=== PATIENT | female | born 1965 | race Hispanic/Latino ===

== ENCOUNTER 2017-07-29 22:14 | Inpatient (IN) | payer MEDICAID ==
[~2017-07-29] VITALS: Ht 157.5 cm; Wt 87.1 kg
[2017-07-29 22:49] LABS: BASOPHILS % (AUTO) 0.7 % (0.0-5.0); EOSINOPHILS % (AUTO) 1.6 % (0.0-8.0); HEMATOCRIT 33.2 % (36-48); LYMPHOCYTES % (AUTO) 34.4 % (21.0-51.0); MEAN CORPUSCULAR HEMOGLOBIN 32.2 pg (27.0-33.0); MEAN CORPUSCULAR HGB CONC 34.9 g/dL (32.0-36.0); MONOCYTES % (AUTO) 8.1 % (3.0-13.0); NEUTROPHILS % (AUTO) 55.2 % (40.0-77.0); PLATELET COUNT (AUTO) 261 K/uL (130-400); RED BLOOD CELL COUNT(AUTO) 3.61 MIL/uL (4.00-5.50); RED CELL DISTRIBUTION WIDTH 13.1 % (11.0-15.5)
[2017-07-29 23:00] LABS: CREATININE 0.9 mg/dL (0.5-1.5); POTASSIUM 4.2 mmol/L (3.5-5.1)
[2017-07-29 23:04] LABS: ALBUMIN 3.4 g/dL (3.5-5.0); BILIRUBIN,TOTAL 0.2 mg/dL (0.2-1.0); TOTAL PROTEIN, SERUM 6.8 g/dL (6.0-8.3)
[2017-07-29] MEDS ORDERED: ONDANSETRON HCL 4 MG/2 ML VIAL ONE (23:16)
[2017-07-29] MEDS ORDERED: SODIUM CHLORIDE 0.9% 1000ML 1,000 ML IV ONE (23:16)
[2017-07-29] MEDS ORDERED: MORPHINE SULFATE 8 MG/ML VIAL ONE (23:17)
[2017-07-29] MEDS ORDERED: IOPAMIDOL-370 75 ML VIAL IV ONE (23:40)
[2017-07-30 01:58] LABS: PARTIAL THROMBOPLASTIN TIME 45.8 SEC (26.3-35.5)
[2017-07-30 02:10] LABS: INR 4.35 (0.85-1.15); PROTHROMBIN TIME 44.4 SEC (9.6-11.6)
[2017-07-30] MEDS ORDERED: MORPHINE SULFATE 8 MG/ML VIAL ONE ×2 (02:26→02:36)
[2017-07-30] MEDS ORDERED: HYDROMORPHONE 4MG/ML 1ML VIAL ONE (05:57)
[2017-07-30] MEDS ORDERED: SODIUM CHLORIDE 0.9% 1000ML 1,000 ML IV SCH (09:00)
[2017-07-30] MEDS ORDERED: MORPHINE SULFATE 2 MG/ML 1ML SYG IVP PRN (09:00)
[2017-07-30] MEDS ORDERED: MORPHINE SULFATE 2 MG/ML 1ML SYG ONE (09:24)
[2017-07-30 12:08] VITALS: BP 151/93
[2017-07-30] MEDS ORDERED: WARF7.5T23 PO (12:25)
[2017-07-30] MEDS ORDERED: VALS320T2 PO (12:25)
[2017-07-30] MEDS ORDERED: PROG100C6 PO (12:25)
[2017-07-30] MEDS ORDERED: ESOM40CA PO (12:25)
[2017-07-30] MEDS ORDERED: VENL150T3 PO (12:25)
[2017-07-30] MEDS ORDERED: HYDR-4381 PO (12:26)
[2017-07-30] MEDS: SODIUM CHLORIDE 0.9% 1000ML 1,000 ML IV SCH ×2 (13:02→23:42)
[2017-07-30] MEDS: MORPHINE SULFATE 2 MG/ML 1ML SYG IVP PRN ×3 (13:56→22:02)
[2017-07-30 15:20] VITALS: BP 120/84
[2017-07-30] MEDS ORDERED: MORPHINE SULFATE 2 MG/ML 1ML SYG IV PRN (18:15)
[2017-07-30] MEDS ORDERED: HYDRALAZINE HCL 20 MG/ML VIAL IV PRN (18:15)
[2017-07-30] MEDS ORDERED: HYDROCODONE/ACETAMINOPHEN 5/325 MG TAB PO PRN (18:15)
[2017-07-30 19:37] VITALS: BP 123/64
[2017-07-30 23:01] VITALS: BP 127/68
[2017-07-31 03:26] VITALS: BP 126/64
[2017-07-31] MEDS: MORPHINE SULFATE 2 MG/ML 1ML SYG IVP PRN ×2 (07:07→11:27)
[2017-07-31 07:34] VITALS: BP 137/82
[2017-07-31] MEDS ORDERED: PANTOPRAZOLE SODIUM 40 MG TABLET.DR PO SCH ×2 (09:00)
[2017-07-31] MEDS ORDERED: LOSARTAN 100 MG TABLET PO SCH (09:00)
[2017-07-31] MEDS: SODIUM CHLORIDE 0.9% 1000ML 1,000 ML IV SCH (10:17)
[2017-07-31 11:37] VITALS: BP 142/76
[2017-07-31 12:25] LABS: INR 2.19 (0.85-1.15); PROTHROMBIN TIME 22.6 SEC (9.6-11.6)
[2017-07-31 15:26] VITALS: BP 151/93
[2017-07-31] MEDS ORDERED: WARFARIN SODIUM 7.5 MG TAB PO SCH (16:00)
== END 2017-07-31 17:50 | disposition home or self-care (01) | DRG 251 ==
LOC: EDH 22:14 → EDHIP 22:15 → WSH 07-30 11:55
PROVIDERS: ADMIT Family Medicine; ATTEND Family Medicine
DX: R10.9 Unspecified abdominal pain (principal); E66.9 Obesity, unspecified; F32.9 Major depressive disorder, single episode, unspecified; Z68.35 Body mass index [BMI] 35.0-35.9, adult; F41.9 Anxiety disorder, unspecified; G89.4 Chronic pain syndrome; Z79.01 Long term (current) use of anticoagulants; Z95.2 Presence of prosthetic heart valve; Z98.84 Bariatric surgery status; Z86.73 Personal history of transient ischemic attack (TIA), and cerebral infarction without residual deficits; I10 Essential (primary) hypertension; M10.9 Gout, unspecified; M79.7 Fibromyalgia; Z90.49 Acquired absence of other specified parts of digestive tract; Z28.21 Immunization not carried out because of patient refusal
CPT/HCPCS: 36415; 74176; 80053; 82550; 83690; 84484; 85025; 85610; 85730; 93005; 99291; J1170; J2270; J2405; J7030; Q9967

== ENCOUNTER 2017-10-20 08:02 | Emergency (ER) | payer MEDICAID ==
[~2017-10-20 08:02] MED LIST: ESOM40CA PO; HYDR-4381 PO; PROG100C6 PO; VALS320T2 PO; VENL150T3 PO; WARF7.5T23 PO
[2017-10-20] MEDS ORDERED: TETANUS/DIPHTHERIA TOXOID [ADULT] 0.5 ML VIAL IM ONE (08:34)
[2017-10-20 09:02] LABS: BASOPHILS % (AUTO) 0.4 % (0.0-5.0); EOSINOPHILS % (AUTO) 2.3 % (0.0-8.0); HEMATOCRIT 36.3 % (36-48); LYMPHOCYTES % (AUTO) 25.3 % (21.0-51.0); MEAN CORPUSCULAR HEMOGLOBIN 31.9 pg (27.0-33.0); MEAN CORPUSCULAR HGB CONC 34.9 g/dL (32.0-36.0); MEAN CORPUSCULAR VOLUME 91.4 fL (79-99); MONOCYTES % (AUTO) 4.1 % (3.0-13.0); NEUTROPHILS % (AUTO) 67.9 % (40.0-77.0); PLATELET COUNT (AUTO) 254 K/uL (130-400); RED BLOOD CELL COUNT(AUTO) 3.97 MIL/uL (4.00-5.50); RED CELL DISTRIBUTION WIDTH 13.3 % (11.0-15.5); WHITE BLOOD COUNT (AUTO) 6.4 K/uL (4.8-10.8)
[2017-10-20 09:03] LABS: APPEARANCE,URINE CLEAR (CLEAR); BILIRUBIN,URINE NEGATIVE (NEGATIVE); COLOR,URINE YELLOW (YELLOW); GLUCOSE, URINE (UA) NEGATIVE (NEGATIVE); KETONES,URINE NEGATIVE (NEGATIVE); LEUKOCYTE ESTERASE ,URINE SMALL (NEGATIVE); NITRATE,URINE NEGATIVE (NEGATIVE); OCCULT BLOOD,URINE TRACE-INTACT (NEGATIVE); PH,URINE 5.5 (5.0-8.0); PROTEIN,URINE NEGATIVE (NEGATIVE); UROBILINOGEN,URINE 0.2 mg/dL (0.2-1.0)
[2017-10-20 09:08] LABS: AMPHET/METH SCREEN,URINE NEGATIVE (NEGATIVE); BACTERIA,URINE Rare /HPF (None Seen); BARBITURATE SCREEN, URINE NEGATIVE (NEGATIVE); BENZODIAZEPINES SCREEN,URINE NEGATIVE (NEGATIVE); CANNABINOID SCREEN,URINE NEGATIVE (NEGATIVE); COCAINE SCREEN,URINE NEGATIVE (NEGATIVE); OPIATE SCREEN,URINE POSITIVE (NEGATIVE); PHENCYCLIDINE SCREEN,URINE NEGATIVE (NEGATIVE); RBC,URINE 0-1 /HPF (0-1); SQUAMOUS EPITHELIAL CELL,UR Rare /HPF (0-2)
[2017-10-20 09:13] LABS: CREATININE 0.9 mg/dL (0.5-1.5); POTASSIUM 4.1 mmol/L (3.5-5.1)
[2017-10-20 09:23] LABS: INR 2.64 (0.85-1.15); PARTIAL THROMBOPLASTIN TIME 39.2 SEC (26.3-35.5); PROTHROMBIN TIME 27.2 SEC (9.6-11.6)
[2017-10-20 09:25] LABS: BILIRUBIN,TOTAL 0.3 mg/dL (0.2-1.0)
[2017-10-20 09:26] LABS: ALBUMIN 3.7 g/dL (3.5-5.0); CREATINE KINASE MB 1.5 ng/mL (0.5-3.6); TOTAL PROTEIN, SERUM 7.6 g/dL (6.0-8.3)
== END 2017-10-20 10:14 | disposition home or self-care (01) ==
LOC: EDH 08:02
DX: S29.011A Strain of muscle and tendon of front wall of thorax, initial encounter (principal); S63.592A Other specified sprain of left wrist, initial encounter; I25.10 Atherosclerotic heart disease of native coronary artery without angina pectoris; I10 Essential (primary) hypertension; Z87.891 Personal history of nicotine dependence; Z79.01 Long term (current) use of anticoagulants; Z95.2 Presence of prosthetic heart valve; W01.0XXA Fall on same level from slipping, tripping and stumbling without subsequent striking against object, initial encounter; Y93.01 Activity, walking, marching and hiking; Y92.89 Other specified places as the place of occurrence of the external cause; Y99.8 Other external cause status
CPT/HCPCS: 36415; 71101; 73130; 80053; 80305; 81001; 82550; 82553; 84484; 85025; 85610; 85730; 90471; 90714; 93005

== ENCOUNTER 2022-05-31 04:04 | Inpatient (IN) | payer MEDICAID ==
[~2022-05-31] VITALS: Ht 160 cm; Wt 75.1 kg
[2022-05-31] VITALS (7 sets, daily range): BP systolic 93–124; BP diastolic 35–46
[~2022-05-31 04:04] MED LIST changes: +PROG100C11 PO; -PROG100C6 PO
[2022-05-31 04:31] LABS: BASOPHILS % (AUTO) 0.6 % (0.0-5.0); EOSINOPHILS % (AUTO) 1.2 % (0.0-8.0); HEMATOCRIT 30.5 % (36-48); LYMPHOCYTES % (AUTO) 14.2 % (21.0-51.0); MEAN CORPUSCULAR HEMOGLOBIN 30.5 pg (27.0-33.0); MEAN CORPUSCULAR HGB CONC 33.1 g/dL (32.0-36.0); MEAN CORPUSCULAR VOLUME 92.1 fL (79-99); MONOCYTES % (AUTO) 4.8 % (3.0-13.0); NEUTROPHILS % (AUTO) 78.8 % (40.0-77.0); PLATELET COUNT (AUTO) 292 K/uL (130-400); RED BLOOD CELL COUNT(AUTO) 3.31 MIL/uL (4.00-5.50); RED CELL DISTRIBUTION WIDTH 13.6 % (11.0-15.5); WHITE BLOOD COUNT (AUTO) 7.7 K/uL (4.8-10.8)
[2022-05-31 04:33] LABS: APPEARANCE,URINE CLEAR (CLEAR); BILIRUBIN,URINE NEGATIVE (NEGATIVE); COLOR,URINE YELLOW (YELLOW); GLUCOSE, URINE (UA) NEGATIVE (NEGATIVE); KETONES,URINE NEGATIVE (NEGATIVE); LEUKOCYTE ESTERASE ,URINE NEGATIVE Leu/uL (NEGATIVE); NITRATE,URINE NEGATIVE (NEGATIVE); OCCULT BLOOD,URINE NEGATIVE (NEGATIVE); PH,URINE 5.5 (5.0-8.0); PROTEIN,URINE 10 mg/dL (NEGATIVE)
[2022-05-31 04:41] LABS: CREATININE 1.1 mg/dL (0.5-1.5); POTASSIUM 3.9 mmol/L (3.5-5.1)
[2022-05-31 04:49] LABS: RBC,URINE 0-1 /HPF (0-1)
[2022-05-31 04:52] LABS: ALBUMIN 3.2 g/dL (3.5-5.0); TOTAL PROTEIN, SERUM 7.5 g/dL (6.0-8.3)
[2022-05-31 04:54] LABS: INR 0.93 (0.85-1.15); PROTHROMBIN TIME 9.9 SEC (9.6-11.6)
[2022-05-31 04:56] LABS: PARTIAL THROMBOPLASTIN TIME 27.7 SEC (26.3-35.5)
[2022-05-31] MEDS ORDERED: ASPIRIN 81MG CHEW TAB PO ONE (05:30)
[2022-05-31] MEDS ORDERED: MORPHINE 2 MG SYG IVP ONE (05:30)
[2022-05-31] MEDS ORDERED: HEPARIN 25,000 UNITS/250ML D5W 250 ML IV SCH (05:30)
[2022-05-31] MEDS ORDERED: HEPARIN 5,000 UNIT VIAL ONE (05:51)
[2022-05-31] MEDS ORDERED: CLONIDINE HCL 0.1 MG TABLET PO PRN (06:00)
[2022-05-31] MEDS ORDERED: LABETALOL 20MG SYG IV PRN (06:00)
[2022-05-31] MEDS ORDERED: HYDRALAZINE 20MG/ML VIAL IV PRN (06:00)
[2022-05-31] MEDS ORDERED: ACETAMINOPHEN 325 MG TAB PO PRN (06:00)
[2022-05-31 06:03] LABS: AMPHET/METH SCREEN,URINE NEGATIVE (NEGATIVE); BARBITURATE SCREEN, URINE NEGATIVE (NEGATIVE); BENZODIAZEPINES SCREEN,URINE NEGATIVE (NEGATIVE); CANNABINOID SCREEN,URINE NEGATIVE (NEGATIVE); COCAINE SCREEN,URINE NEGATIVE (NEGATIVE); OPIATE SCREEN,URINE POSITIVE (NEGATIVE); PHENCYCLIDINE SCREEN,URINE NEGATIVE (NEGATIVE)
[2022-05-31 06:04] LABS: HEMOGLOBIN A1C 4.4 % (4.0-6.0)
[2022-05-31 06:10] LABS: THYROID STIMULATING HORMONE 1.48 uIU/mL (0.36-3.74)
[2022-05-31] MEDS ORDERED: FUROSEMIDE 20MG VIAL IV ONE (06:30)
[2022-05-31] MEDS ORDERED: LIDOCAINE HCL-MPF 1% 2ML VIAL IV PRN (06:30)
[2022-05-31] MEDS ORDERED: POTASSIUM CHLORIDE 10MEQ/100ML 100 ML IV PRN (06:30)
[2022-05-31] MEDS: METOPROLOL TARTRATE 25 MG TAB PO SCH ×3 (06:54→20:10)
[2022-05-31] MEDS: FUROSEMIDE 20MG VIAL IV SCH ×2 (08:12→20:09)
[2022-05-31] MEDS: ASPIRIN 81MG CHEW TAB PO SCH (08:13)
[2022-05-31] MEDS: MORPHINE 2 MG SYG IVP PRN ×4 (08:24→21:25)
[2022-05-31] MEDS ORDERED: LOSA100T58 PO (18:10)
[2022-05-31] MEDS ORDERED: 0.9% NACL 500ML IV.SOLN 500 ML IV ONE (19:43)
[2022-05-31] MEDS ORDERED: MIDODRINE HCL 5 MG TABLET ONE (19:43)
[2022-05-31] MEDS: FAMOTIDINE 20MG VIAL IV SCH (20:09)
[2022-05-31] MEDS ORDERED: MIDODRINE HCL 5 MG TABLET PO SCH (21:00)
[2022-06-01] MEDS: MORPHINE 2 MG SYG IVP PRN ×5 (02:07→20:46)
[2022-06-01 03:36] VITALS: BP 110/39
[2022-06-01 04:38] LABS: BASOPHILS % (AUTO) 0.6 % (0.0-5.0); EOSINOPHILS % (AUTO) 1.2 % (0.0-8.0); HEMATOCRIT 30.1 % (36-48); LYMPHOCYTES % (AUTO) 17.9 % (21.0-51.0); MEAN CORPUSCULAR HEMOGLOBIN 30.5 pg (27.0-33.0); MEAN CORPUSCULAR HGB CONC 32.6 g/dL (32.0-36.0); MEAN CORPUSCULAR VOLUME 93.8 fL (79-99); MONOCYTES % (AUTO) 5.5 % (3.0-13.0); NEUTROPHILS % (AUTO) 74.4 % (40.0-77.0); PLATELET COUNT (AUTO) 255 K/uL (130-400); RED BLOOD CELL COUNT(AUTO) 3.21 MIL/uL (4.00-5.50); RED CELL DISTRIBUTION WIDTH 13.9 % (11.0-15.5); WHITE BLOOD COUNT (AUTO) 8.2 K/uL (4.8-10.8)
[2022-06-01 04:54] LABS: CREATININE 1.2 mg/dL (0.5-1.5); MAGNESIUM 1.8 mg/dL (1.80-2.40); PHOSPHORUS 3.9 mg/dL (2.5-4.9); POTASSIUM 4.3 mmol/L (3.5-5.1)
[2022-06-01] MEDS: MAGNESIUM 2GM PREMIX 50ML 50 ML IV PRN (05:14)
[2022-06-01 05:29] LABS: B-TYPE NATRIURETIC PEPTIDE 2510 pg/mL (0-100)
[2022-06-01] MEDS: FUROSEMIDE 20MG VIAL IV SCH (06:32)
[2022-06-01 08:00] VITALS: BP 112/42
[2022-06-01] MEDS: MIDODRINE HCL 5 MG TABLET PO SCH ×3 (09:00→20:46)
[2022-06-01] MEDS: FUROSEMIDE 40MG VIAL IV SCH ×2 (09:56→20:45)
[2022-06-01] MEDS: ASPIRIN 81MG CHEW TAB PO SCH (09:56)
[2022-06-01] MEDS: FAMOTIDINE 20MG VIAL IV SCH ×2 (09:56→20:45)
[2022-06-01] MEDS: VENLAFAXINE HCL XR 37.5 MG CAP PO SCH (09:56)
[2022-06-01] MEDS: ENOXAPARIN SODIUM 30 MG/0.3 ML SQ SCH (09:57)
[2022-06-01 12:00] VITALS: BP 126/44
[2022-06-01 16:00] VITALS: BP 109/47
[2022-06-01 19:09] VITALS: BP_SYST 108; BP_SYST 140; BP_DIAS 40; BP_DIAS 85
[2022-06-01 23:46] VITALS: BP 133/53
[2022-06-02] MEDS: MORPHINE 2 MG SYG IVP PRN ×5 (01:17→20:26)
[2022-06-02 04:00] VITALS: BP 116/48
[2022-06-02 04:00] LABS: BASOPHILS % (AUTO) 0.6 % (0.0-5.0); EOSINOPHILS % (AUTO) 1.3 % (0.0-8.0); LYMPHOCYTES % (AUTO) 19.8 % (21.0-51.0); MEAN CORPUSCULAR HEMOGLOBIN 30.6 pg (27.0-33.0); MEAN CORPUSCULAR HGB CONC 32.7 g/dL (32.0-36.0); MEAN CORPUSCULAR VOLUME 93.8 fL (79-99); MONOCYTES % (AUTO) 6.9 % (3.0-13.0); NEUTROPHILS % (AUTO) 71.1 % (40.0-77.0); PLATELET COUNT (AUTO) 300 K/uL (130-400); WHITE BLOOD COUNT (AUTO) 9.1 K/uL (4.8-10.8)
[2022-06-02 04:10] LABS: CREATININE 1.1 mg/dL (0.5-1.5); POTASSIUM 4.7 mmol/L (3.5-5.1)
[2022-06-02] MEDS: FUROSEMIDE 40MG VIAL IV SCH ×2 (06:43→17:36)
[2022-06-02 08:00] VITALS: BP 109/42
[2022-06-02] MEDS: MIDODRINE HCL 5 MG TABLET PO SCH ×3 (09:08→20:13)
[2022-06-02] MEDS: ASPIRIN 81MG CHEW TAB PO SCH (09:09)
[2022-06-02] MEDS: ENOXAPARIN SODIUM 30 MG/0.3 ML SQ SCH ×2 (09:09→09:10)
[2022-06-02] MEDS: FAMOTIDINE 20MG VIAL IV SCH ×2 (09:09→20:20)
[2022-06-02] MEDS: VENLAFAXINE HCL XR 37.5 MG CAP PO SCH (09:09)
[2022-06-02 12:18] VITALS: BP 114/41
[2022-06-02 16:46] VITALS: BP 132/61
[2022-06-02] MEDS: ONDANSETRON 4MG INJ IVP PRN (17:36)
[2022-06-02 18:27] VITALS: BP 122/50
[2022-06-02] MEDS ORDERED: IOHEXOL 350 MG/ML 100ML INFUS..BTL IV ONE (18:58)
[2022-06-03] VITALS (13 sets, daily range): BP systolic 101–125; BP diastolic 41–81
[2022-06-03] MEDS: MORPHINE 2 MG SYG IVP PRN ×5 (02:12→21:48)
[2022-06-03 03:42] LABS: BASOPHILS % (AUTO) 0.7 % (0.0-5.0); EOSINOPHILS % (AUTO) 2.8 % (0.0-8.0); LYMPHOCYTES % (AUTO) 19.7 % (21.0-51.0); MEAN CORPUSCULAR HEMOGLOBIN 30.6 pg (27.0-33.0); MEAN CORPUSCULAR HGB CONC 32.5 g/dL (32.0-36.0); MEAN CORPUSCULAR VOLUME 94.3 fL (79-99); MONOCYTES % (AUTO) 7.6 % (3.0-13.0); NEUTROPHILS % (AUTO) 68.5 % (40.0-77.0); PLATELET COUNT (AUTO) 256 K/uL (130-400); RED BLOOD CELL COUNT(AUTO) 2.97 MIL/uL (4.00-5.50); RED CELL DISTRIBUTION WIDTH 14.2 % (11.0-15.5); WHITE BLOOD COUNT (AUTO) 7.2 K/uL (4.8-10.8)
[2022-06-03 03:58] LABS: INR 0.94 (0.85-1.15); PROTHROMBIN TIME 10.3 SEC (9.6-11.6)
[2022-06-03 03:59] LABS: PARTIAL THROMBOPLASTIN TIME 26.3 SEC (26.3-35.5)
[2022-06-03 04:00] LABS: ALBUMIN 2.8 g/dL (3.5-5.0); CREATININE 1.3 mg/dL (0.5-1.5); MAGNESIUM 1.7 mg/dL (1.80-2.40); POTASSIUM 4.6 mmol/L (3.5-5.1); TOTAL PROTEIN, SERUM 6.8 g/dL (6.0-8.3)
[2022-06-03] MEDS: FUROSEMIDE 40MG VIAL IV SCH ×2 (05:40→17:44)
[2022-06-03] MEDS: MAGNESIUM 2GM PREMIX 50ML 50 ML IV PRN (05:41)
[2022-06-03] MEDS: ASPIRIN 81MG CHEW TAB PO SCH (08:27)
[2022-06-03] MEDS: FAMOTIDINE 20MG VIAL IV SCH ×2 (08:28→20:21)
[2022-06-03] MEDS: MIDODRINE HCL 5 MG TABLET PO SCH ×3 (08:28→20:01)
[2022-06-03] MEDS: VENLAFAXINE HCL XR 37.5 MG CAP PO SCH (08:28)
[2022-06-03] MEDS ORDERED: HEPARIN 10,000 UNIT/10ML (1,000 UNIT/ML) VIAL ONE (13:32)
[2022-06-03] MEDS ORDERED: NITROGLYCERIN 50MG VIAL ONE (13:32)
[2022-06-03] MEDS ORDERED: LIDOCAINE HCL 400MG/20ML VIAL ONE (13:33)
[2022-06-03] MEDS ORDERED: IOHEXOL 350 MG/ML 100ML INFUS..BTL IV ONE ×3 (13:33→14:06)
[2022-06-03] MEDS ORDERED: MIDAZOLAM HCL 1 MG/ML 2ML VIAL ONE (13:33)
[2022-06-03] MEDS ORDERED: IOHEXOL-350 50ML VIAL IV ONE (13:33)
[2022-06-03] MEDS ORDERED: FENTANYL CITRATE PF 50 MCG/1 ML 2ML VIAL ONE (13:46)
[2022-06-03] MEDS ORDERED: DOPAMINE HCL 400 MG/D5%-WATER 0 ML IV ONE (13:50)
[2022-06-03] MEDS: LOSARTAN 25 MG TABLET PO SCH (20:21)
[2022-06-04] VITALS (7 sets, daily range): BP systolic 98–119; BP diastolic 40–54
[2022-06-04] MEDS: MORPHINE 2 MG SYG IVP PRN ×6 (02:07→23:27)
[2022-06-04 03:46] LABS: HEMATOCRIT 27.7 % (36-48); MEAN CORPUSCULAR HEMOGLOBIN 30.8 pg (27.0-33.0); MEAN CORPUSCULAR HGB CONC 32.5 g/dL (32.0-36.0); MEAN CORPUSCULAR VOLUME 94.9 fL (79-99); RED BLOOD CELL COUNT(AUTO) 2.92 MIL/uL (4.00-5.50); RED CELL DISTRIBUTION WIDTH 14.1 % (11.0-15.5); WHITE BLOOD COUNT (AUTO) 8.3 K/uL (4.8-10.8)
[2022-06-04 04:00] LABS: CREATININE 1.4 mg/dL (0.5-1.5); POTASSIUM 4.7 mmol/L (3.5-5.1)
[2022-06-04] MEDS: FUROSEMIDE 40MG VIAL IV SCH ×2 (08:35→20:48)
[2022-06-04] MEDS: MIDODRINE HCL 5 MG TABLET PO SCH ×3 (08:35→20:48)
[2022-06-04] MEDS: FAMOTIDINE 20MG VIAL IV SCH ×2 (08:35→20:48)
[2022-06-04] MEDS: ASPIRIN 81MG CHEW TAB PO SCH (08:36)
[2022-06-04] MEDS: LOSARTAN 25 MG TABLET PO SCH ×2 (08:36→20:47)
[2022-06-04] MEDS: VENLAFAXINE HCL XR 37.5 MG CAP PO SCH (08:36)
[2022-06-04] MEDS: ENOXAPARIN SODIUM 30 MG/0.3 ML SQ SCH (08:36)
[2022-06-04] MEDS: ONDANSETRON 4MG INJ IVP PRN (17:54)
[2022-06-05 00:24] VITALS: BP 110/45
[2022-06-05 04:32] VITALS: BP 100/43
[2022-06-05] MEDS: MORPHINE 2 MG SYG IVP PRN ×3 (04:36→17:35)
[2022-06-05 04:46] LABS: HEMATOCRIT 28.6 % (36-48); MEAN CORPUSCULAR HEMOGLOBIN 30.4 pg (27.0-33.0); MEAN CORPUSCULAR HGB CONC 31.8 g/dL (32.0-36.0); MEAN CORPUSCULAR VOLUME 95.7 fL (79-99); RED BLOOD CELL COUNT(AUTO) 2.99 MIL/uL (4.00-5.50); RED CELL DISTRIBUTION WIDTH 14.3 % (11.0-15.5); WHITE BLOOD COUNT (AUTO) 8.5 K/uL (4.8-10.8)
[2022-06-05 04:55] LABS: INR 0.93 (0.85-1.15); PROTHROMBIN TIME 10.2 SEC (9.6-11.6)
[2022-06-05 04:56] LABS: PARTIAL THROMBOPLASTIN TIME 25.6 SEC (26.3-35.5)
[2022-06-05 05:19] LABS: ALBUMIN 2.8 g/dL (3.5-5.0); CREATININE 1.4 mg/dL (0.5-1.5); MAGNESIUM 2.1 mg/dL (1.80-2.40); PHOSPHORUS 5.3 mg/dL (2.5-4.9); POTASSIUM 4.5 mmol/L (3.5-5.1); TOTAL PROTEIN, SERUM 6.7 g/dL (6.0-8.3)
[2022-06-05 08:59] VITALS: BP 105/45
[2022-06-05] MEDS: ASPIRIN 81MG CHEW TAB PO SCH (09:35)
[2022-06-05] MEDS: VENLAFAXINE HCL XR 37.5 MG CAP PO SCH (09:38)
[2022-06-05] MEDS: LOSARTAN 25 MG TABLET PO SCH ×2 (09:38→13:30)
[2022-06-05] MEDS: MIDODRINE HCL 5 MG TABLET PO SCH ×3 (09:38→20:23)
[2022-06-05] MEDS: FAMOTIDINE 20MG VIAL IV SCH ×2 (09:40→20:19)
[2022-06-05] MEDS: ENOXAPARIN SODIUM 30 MG/0.3 ML SQ SCH (09:42)
[2022-06-05] MEDS: FUROSEMIDE 40MG VIAL IV SCH ×2 (10:06→20:19)
[2022-06-05 12:41] VITALS: BP 111/49
[2022-06-05] MEDS ORDERED: HYDROCODONE/ACETAMINOPHEN 10/325 MG TAB ONE (13:15)
[2022-06-05] MEDS ORDERED: HYDROCODONE/ACETAMINOPHEN 10/325 MG TAB PO PRN (13:30)
[2022-06-05 16:47] VITALS: BP 86/37
[2022-06-05] MEDS ORDERED: MIDODRINE HCL 5 MG TABLET ONE (17:11)
[2022-06-05 19:18] VITALS: BP 101/42
[2022-06-05] MEDS: HYDROCODONE/ACETAMINOPHEN 10/325 MG TAB PO PRN (23:50)
[2022-06-06] VITALS (7 sets, daily range): BP systolic 104–119; BP diastolic 36–60
[2022-06-06] MEDS ORDERED: 0.9%NACL 100ML 100 ML ONE (02:21)
[2022-06-06] MEDS ORDERED: PANTOPRAZOLE 40 MG/VIAL ONE (02:21)
[2022-06-06 03:58] LABS: HEMATOCRIT 28.2 % (36-48); MEAN CORPUSCULAR HEMOGLOBIN 30.5 pg (27.0-33.0); MEAN CORPUSCULAR HGB CONC 32.3 g/dL (32.0-36.0); MEAN CORPUSCULAR VOLUME 94.6 fL (79-99); RED BLOOD CELL COUNT(AUTO) 2.98 MIL/uL (4.00-5.50); RED CELL DISTRIBUTION WIDTH 14.1 % (11.0-15.5); WHITE BLOOD COUNT (AUTO) 9.2 K/uL (4.8-10.8)
[2022-06-06 04:22] LABS: CREATININE 2.2 mg/dL (0.5-1.5); MAGNESIUM 2.1 mg/dL (1.80-2.40); PHOSPHORUS 5.8 mg/dL (2.5-4.9); POTASSIUM 4.1 mmol/L (3.5-5.1)
[2022-06-06] MEDS: FUROSEMIDE 40MG VIAL IV SCH (08:30)
[2022-06-06] MEDS: FAMOTIDINE 20MG VIAL IV SCH ×2 (08:31→21:42)
[2022-06-06] MEDS: ASPIRIN 81MG CHEW TAB PO SCH (08:32)
[2022-06-06] MEDS: MIDODRINE HCL 5 MG TABLET PO SCH ×3 (08:32→21:42)
[2022-06-06] MEDS: VENLAFAXINE HCL XR 37.5 MG CAP PO SCH (08:32)
[2022-06-06] MEDS: ENOXAPARIN SODIUM 30 MG/0.3 ML SQ SCH (08:33)
[2022-06-06] MEDS: LOSARTAN 25 MG TABLET PO SCH (08:35)
[2022-06-06] MEDS: MORPHINE 2 MG SYG IVP PRN (08:40)
[2022-06-06] MEDS: ONDANSETRON 4MG INJ IVP PRN ×2 (09:30→17:54)
[2022-06-06] MEDS: HYDROCODONE/ACETAMINOPHEN 10/325 MG TAB PO PRN ×3 (13:27→21:42)
[2022-06-07 00:24] VITALS: BP 144/57
[2022-06-07 03:24] VITALS: BP 127/47
[2022-06-07] MEDS: HYDROCODONE/ACETAMINOPHEN 10/325 MG TAB PO PRN ×4 (03:35→23:55)
[2022-06-07 03:57] LABS: BASOPHILS % (AUTO) 0.5 % (0.0-5.0); EOSINOPHILS % (AUTO) 2.6 % (0.0-8.0); HEMATOCRIT 29.3 % (36-48); MEAN CORPUSCULAR HEMOGLOBIN 30.3 pg (27.0-33.0); MEAN CORPUSCULAR HGB CONC 33.1 g/dL (32.0-36.0); MEAN CORPUSCULAR VOLUME 91.6 fL (79-99); MONOCYTES % (AUTO) 4.8 % (3.0-13.0); NEUTROPHILS % (AUTO) 69.8 % (40.0-77.0); PLATELET COUNT (AUTO) 311 K/uL (130-400); RED CELL DISTRIBUTION WIDTH 14.1 % (11.0-15.5); WHITE BLOOD COUNT (AUTO) 9.1 K/uL (4.8-10.8)
[2022-06-07 04:04] LABS: CREATININE 1.8 mg/dL (0.5-1.5); POTASSIUM 4.7 mmol/L (3.5-5.1)
[2022-06-07] MEDS ORDERED: FUROSEMIDE 40MG VIAL IV SCH (07:30)
[2022-06-07 08:07] VITALS: BP 117/44
[2022-06-07] MEDS: ASPIRIN 81MG CHEW TAB PO SCH (08:25)
[2022-06-07] MEDS: VENLAFAXINE HCL XR 37.5 MG CAP PO SCH (08:25)
[2022-06-07] MEDS: FAMOTIDINE 20MG VIAL IV SCH ×2 (08:25→21:07)
[2022-06-07] MEDS: ENOXAPARIN SODIUM 30 MG/0.3 ML SQ SCH (08:25)
[2022-06-07] MEDS: MIDODRINE HCL 5 MG TABLET PO SCH ×3 (08:26→21:07)
[2022-06-07] MEDS: ONDANSETRON 4MG INJ IVP PRN ×2 (09:46→17:58)
[2022-06-07 11:10] VITALS: BP 135/44
[2022-06-07] MEDS: FUROSEMIDE 40MG VIAL IV SCH (14:08)
[2022-06-07] MEDS: MORPHINE 2 MG SYG IVP PRN ×2 (14:11→21:07)
[2022-06-07 15:42] VITALS: BP 128/47
[2022-06-07 20:12] VITALS: BP 126/46
[2022-06-08] VITALS (9 sets, daily range): BP systolic 102–137; BP diastolic 45–58
[2022-06-08 03:57] LABS: BASOPHILS % (AUTO) 0.8 % (0.0-5.0); EOSINOPHILS % (AUTO) 1.4 % (0.0-8.0); HEMATOCRIT 30.8 % (36-48); LYMPHOCYTES % (AUTO) 18.1 % (21.0-51.0); MEAN CORPUSCULAR HEMOGLOBIN 30.5 pg (27.0-33.0); MEAN CORPUSCULAR HGB CONC 32.1 g/dL (32.0-36.0); MEAN CORPUSCULAR VOLUME 94.8 fL (79-99); MONOCYTES % (AUTO) 6.4 % (3.0-13.0); PLATELET COUNT (AUTO) 298 K/uL (130-400); RED BLOOD CELL COUNT(AUTO) 3.25 MIL/uL (4.00-5.50); RED CELL DISTRIBUTION WIDTH 14.2 % (11.0-15.5)
[2022-06-08 04:15] LABS: CREATININE 1.4 mg/dL (0.5-1.5); POTASSIUM 4.4 mmol/L (3.5-5.1)
[2022-06-08] MEDS: MORPHINE 2 MG SYG IVP PRN ×3 (07:08→19:43)
[2022-06-08] MEDS: ENOXAPARIN SODIUM 30 MG/0.3 ML SQ SCH (08:19)
[2022-06-08] MEDS: FAMOTIDINE 20MG VIAL IV SCH ×2 (08:20→19:42)
[2022-06-08] MEDS: MIDODRINE HCL 5 MG TABLET PO SCH ×3 (08:20→19:42)
[2022-06-08] MEDS: ASPIRIN 81MG CHEW TAB PO SCH (08:20)
[2022-06-08] MEDS: FUROSEMIDE 40MG VIAL IV SCH (08:20)
[2022-06-08] MEDS: VENLAFAXINE HCL XR 37.5 MG CAP PO SCH (08:21)
[2022-06-08] MEDS: ONDANSETRON 4MG INJ IVP PRN (08:59)
[2022-06-08] MEDS ORDERED: LOSARTAN 25 MG TABLET PO ONE (12:52)
[2022-06-08] MEDS: HYDROCODONE/ACETAMINOPHEN 10/325 MG TAB PO PRN ×2 (15:08→22:01)
[2022-06-09] MEDS: MORPHINE 2 MG SYG IVP PRN ×4 (03:29→23:43)
[2022-06-09 03:35] VITALS: BP 104/52
[2022-06-09 04:14] LABS: BASOPHILS % (AUTO) 0.8 % (0.0-5.0); EOSINOPHILS % (AUTO) 2.5 % (0.0-8.0); HEMATOCRIT 29.3 % (36-48); LYMPHOCYTES % (AUTO) 20.2 % (21.0-51.0); MEAN CORPUSCULAR HEMOGLOBIN 29.9 pg (27.0-33.0); MEAN CORPUSCULAR HGB CONC 31.7 g/dL (32.0-36.0); MEAN CORPUSCULAR VOLUME 94.2 fL (79-99); MONOCYTES % (AUTO) 6.5 % (3.0-13.0); NEUTROPHILS % (AUTO) 69.6 % (40.0-77.0); PLATELET COUNT (AUTO) 275 K/uL (130-400); RED BLOOD CELL COUNT(AUTO) 3.11 MIL/uL (4.00-5.50); RED CELL DISTRIBUTION WIDTH 14.3 % (11.0-15.5); WHITE BLOOD COUNT (AUTO) 9.1 K/uL (4.8-10.8)
[2022-06-09 04:38] LABS: CREATININE 1.3 mg/dL (0.5-1.5); POTASSIUM 4.1 mmol/L (3.5-5.1)
[2022-06-09 08:00] VITALS: BP 111/59
[2022-06-09] MEDS: ASPIRIN 81MG CHEW TAB PO SCH (08:38)
[2022-06-09] MEDS: ENOXAPARIN SODIUM 30 MG/0.3 ML SQ SCH (08:38)
[2022-06-09] MEDS: MIDODRINE HCL 5 MG TABLET PO SCH ×3 (08:38→20:42)
[2022-06-09] MEDS: VENLAFAXINE HCL XR 37.5 MG CAP PO SCH (08:39)
[2022-06-09] MEDS: FAMOTIDINE 20MG VIAL IV SCH ×2 (08:39→20:41)
[2022-06-09] MEDS: LOSARTAN 25 MG TABLET PO SCH (08:39)
[2022-06-09] MEDS: FUROSEMIDE 40MG VIAL IV SCH (08:39)
[2022-06-09] MEDS: HYDROCODONE/ACETAMINOPHEN 10/325 MG TAB PO PRN ×3 (08:51→21:02)
[2022-06-09 12:00] VITALS: BP 109/52
[2022-06-09 16:00] VITALS: BP 101/42
[2022-06-09 19:52] VITALS: BP 110/45
[2022-06-10] VITALS (7 sets, daily range): BP systolic 103–126; BP diastolic 42–53
[2022-06-10] MEDS: HYDROCODONE/ACETAMINOPHEN 10/325 MG TAB PO PRN ×2 (06:53→13:38)
[2022-06-10] MEDS: FAMOTIDINE 20MG VIAL IV SCH ×2 (09:01→23:12)
[2022-06-10] MEDS: ENOXAPARIN SODIUM 30 MG/0.3 ML SQ SCH (09:01)
[2022-06-10] MEDS: MIDODRINE HCL 5 MG TABLET PO SCH ×3 (09:02→23:11)
[2022-06-10] MEDS: VENLAFAXINE HCL XR 37.5 MG CAP PO SCH (09:02)
[2022-06-10] MEDS: ASPIRIN 81MG CHEW TAB PO SCH (09:02)
[2022-06-10] MEDS: LOSARTAN 25 MG TABLET PO SCH (09:02)
[2022-06-10] MEDS: FUROSEMIDE 40MG VIAL IV SCH (09:02)
[2022-06-10] MEDS: MORPHINE 2 MG SYG IVP PRN ×2 (09:27→19:37)
[2022-06-10] MEDS: ONDANSETRON 4MG INJ IVP PRN (12:40)
[2022-06-11] MEDS ORDERED: HYDROCODONE/ACETAMINOPHEN 10/325 MG TAB ONE
[2022-06-11] MEDS: MORPHINE 2 MG SYG IVP PRN ×3 (01:41→20:30)
[2022-06-11 04:00] VITALS: BP 117/45
[2022-06-11 04:39] LABS: CREATININE 1.3 mg/dL (0.5-1.5); POTASSIUM 3.9 mmol/L (3.5-5.1)
[2022-06-11 07:00] VITALS: BP 113/46
[2022-06-11] MEDS: FUROSEMIDE 40MG VIAL IV SCH (08:34)
[2022-06-11] MEDS: LOSARTAN 25 MG TABLET PO SCH (08:35)
[2022-06-11] MEDS: ASPIRIN 81MG CHEW TAB PO SCH (08:35)
[2022-06-11] MEDS: FAMOTIDINE 20MG VIAL IV SCH ×2 (08:35→20:30)
[2022-06-11] MEDS: HYDROCODONE/ACETAMINOPHEN 10/325 MG TAB PO PRN ×3 (08:35→23:43)
[2022-06-11] MEDS: VENLAFAXINE HCL XR 37.5 MG CAP PO SCH (08:35)
[2022-06-11] MEDS: MIDODRINE HCL 5 MG TABLET PO SCH (08:36)
[2022-06-11] MEDS: ENOXAPARIN SODIUM 30 MG/0.3 ML SQ SCH (08:36)
[2022-06-11 11:00] VITALS: BP 97/42
[2022-06-11 16:00] VITALS: BP 99/45
[2022-06-11 19:56] VITALS: BP 93/42
[2022-06-12 00:07] VITALS: BP 100/49
[2022-06-12 03:39] VITALS: BP 107/51
[2022-06-12] MEDS: MORPHINE 2 MG SYG IVP PRN ×2 (04:16→10:14)
[2022-06-12 04:22] LABS: CREATININE 1.1 mg/dL (0.5-1.5); POTASSIUM 4.8 mmol/L (3.5-5.1)
[2022-06-12] MEDS: HYDROCODONE/ACETAMINOPHEN 10/325 MG TAB PO PRN (04:50)
[2022-06-12 07:31] VITALS: BP 110/51
[2022-06-12] MEDS: LOSARTAN 25 MG TABLET PO SCH (08:57)
[2022-06-12] MEDS: FUROSEMIDE 40MG VIAL IV SCH (08:57)
[2022-06-12] MEDS: FAMOTIDINE 20MG VIAL IV SCH (08:57)
[2022-06-12] MEDS: ASPIRIN 81MG CHEW TAB PO SCH (08:58)
[2022-06-12] MEDS: VENLAFAXINE HCL XR 37.5 MG CAP PO SCH (08:58)
[2022-06-12] MEDS: ENOXAPARIN SODIUM 30 MG/0.3 ML SQ SCH (08:59)
== END 2022-06-12 11:05 | disposition short-term general hospital (02) | DRG 192 ==
LOC: EDH 04:04 → OBSVTOIN 05:33 → EDHIP 05:33 → 2AH 06:10
PROVIDERS: ADMIT Internal Medicine Critical Care Medicine; ATTEND Internal Medicine Critical Care Medicine
PROC: 4A023N7 Measurement of Cardiac Sampling and Pressure, Left Heart, Percutaneous Approach (ICD-10-PCS; principal; 2022-06-03)
PROC: B2111ZZ Fluoroscopy of Multiple Coronary Arteries using Low Osmolar Contrast (ICD-10-PCS; 2022-06-03)
PROC: B3101ZZ Fluoroscopy of Thoracic Aorta using Low Osmolar Contrast (ICD-10-PCS; 2022-06-03)
PROC: B2151ZZ Fluoroscopy of Left Heart using Low Osmolar Contrast (ICD-10-PCS; 2022-06-03)
DX: I11.0 Hypertensive heart disease with heart failure (principal); J96.01 Acute respiratory failure with hypoxia; I21.A1 Myocardial infarction type 2; I25.10 Atherosclerotic heart disease of native coronary artery without angina pectoris; I50.33 Acute on chronic diastolic (congestive) heart failure; Z20.822 Contact with and (suspected) exposure to COVID-19; I35.1 Nonrheumatic aortic (valve) insufficiency; F32.A Depression, unspecified; G89.4 Chronic pain syndrome; Z91.199 Patient's noncompliance with other medical treatment and regimen due to unspecified reason; Z95.2 Presence of prosthetic heart valve; I25.2 Old myocardial infarction; Z79.891 Long term (current) use of opiate analgesic; Z82.49 Family history of ischemic heart disease and other diseases of the circulatory system; Z83.3 Family history of diabetes mellitus; Z90.49 Acquired absence of other specified parts of digestive tract; Z95.1 Presence of aortocoronary bypass graft; Z98.84 Bariatric surgery status
CPT/HCPCS: 36415; 71045; 71250; 71260; 80048; 80053; 80061; 80305; 81001; 82330; 82728; 83036; 83690; 83735; 83880; 84100; 84443; 84484; 85025; 85027; 85378; 85610; 85730; 87426; 93005; 93306; 93356; 93458; 93567; 93970; 99156; 99157; C1769; C1894; C9113; G0378; J1265; J1644; J1650; J1940; J2250; J2405; J3010; J3475; J3490; J7040; Q9967